=== PATIENT | female | born 1960 | race American Indian/Alaskan Native ===

== ENCOUNTER 2024-07-22 17:03 | Emergency (ER) | payer SELFPAY ==
[2024-07-22] MEDS ORDERED: Sodium Chloride 0.9% 10 ML Syringe FLUSH PRN (17:20)
[2024-07-22 17:59] LABS: BASOPHILS ABSOLUTE AUTO 0.05 10^3/uL (0.00-0.10); BASOPHILS PERCENT AUTO 0.6 % (0.0-1.0); EOSINOPHILS ABSOLUTE AUTO 0.07 10^3/uL (0.10-0.30); EOSINOPHILS PERCENT AUTO 0.9 % (1.0-3.0); HEMATOCRIT 40.2 % (37.0-47.0); HEMOGLOBIN 13.4 g/dL (12.0-16.0); IMMATURE GRAN ABSOLUTE AUTO 0.01 10^3/uL (0.00-0.04); IMMATURE GRAN PERCENT AUTO 0.1 % (0.0-0.4); LYMPHOCYTES ABSOLUTE AUTO 1.79 10^3/uL (1.00-4.00); LYMPHOCYTES PERCENT AUTO 22.7 % (20.0-40.0); MEAN CORPUSCULAR HEMOGLOBIN 30.5 pg (27.0-31.0); MEAN CORPUSCULAR HGB CONC 33.3 g/dL (32.0-36.0); MEAN CORPUSCULAR VOLUME 91.6 fL (82.0-92.0); MEAN PLATELET VOLUME 9.8 fL (7.4-10.4); MONOCYTES ABSOLUTE AUTO 0.52 10^3/uL (0.10-0.80); MONOCYTES PERCENT AUTO 6.6 % (2.0-8.0); NEUTROPHILS ABSOLUTE AUTO 5.44 10^3/uL (2.50-7.00); NEUTROPHILS PERCENT AUTO 69.1 % (50.0-70.0); PLATELET COUNT,PLT 282 10^3/uL (150-400); RED BLOOD CELL COUNT 4.39 10^6/uL (3.80-5.50); RED CELL DISTRIBUTION WIDTH 13.7 % (11.5-14.5); WHITE BLOOD CELL COUNT,WBC 7.88 10^3/uL (5.00-10.00)
[2024-07-22 18:08] LABS: APPEARANCE,URINE CLEAR (CLEAR); BILIRUBIN,URINE NEGATIVE (NEGATIVE); COLOR,URINE YELLOW (YELLOW); GLUCOSE,URINE NEGATIVE (NEGATIVE); KETONES,URINE NEGATIVE (NEGATIVE); LEUKOCYTE ESTERASE,URINE TRACE (NEGATIVE); NITRITE,URINE NEGATIVE (NEGATIVE); OCCULT BLOOD,URINE NEGATIVE (NEGATIVE); PROTEIN,URINE NEGATIVE (NEGATIVE); UROBILINOGEN,URINE 0.2 E.U./dL (0.2-1.0)
[2024-07-22 18:16] LABS: ALANINE AMINOTRANSFERASE,ALT 42 U/L (14-63); ALBUMIN 4.24 g/dL (3.40-5.00); ALKALINE PHOSPHATASE 162 U/L (46-116); ANION GAP 14.8 mmol/L (5-15); ASPARTATE AMNIOTRANSFERASE,AST 29 U/L (15-37); BILIRUBIN TOTAL 0.8 mg/dL (0.2-1.0); BLOOD UREA NITROGEN,BUN 12 mg/dL (7-18); CALCIUM 9.2 mg/dL (8.7-10.3); CARBON DIOXIDE,CO2 29.8 mmol/L (21.0-32.0); CHLORIDE,CL 100 mmol/L (98-107); CREATININE 1.35 mg/dL (0.51-1.17); EST CRCL DRUG DOSING (CG) 35.28 mL/min; GLUCOSE RANDOM 129 mg/dL (70-140); POTASSIUM,K 3.6 mmol/L (3.5-5.1); PROTEIN TOTAL,TP 7.8 g/dL (6.4-8.2); SODIUM,NA 141 mmol/L (136-145)
[2024-07-22 18:17] LABS: C-REACTIVE PROTEIN < 0.50 mg/dL (0.00-0.50); ESTIMATED GFR 44 mL/min (>=60); ETHANOL BLOOD MEDICAL < 3 mg/dL (<3)
[2024-07-22 18:18] LABS: CREATINE KINASE,CK 753 U/L (26-276)
[2024-07-22 18:19] LABS: BACTERIA,URINE RARE /HPF (NONE TO FEW); EPITHELIAL CELLS,URINE FEW /LPF; RBC,URINE 0-5 /HPF (0-5)
[2024-07-22 18:22] LABS: B-TYPE NATRIURETIC PEPTIDE,BNP 6 pg/mL (0-100)
[2024-07-22] MEDS: hydrALAZINE 20 MG/ML SDV IVPUSH ONE ×2 (18:25→18:45)
[2024-07-22] MEDS: Sodium Chloride 0.9% 1,000 ML IV ONE ×2 (18:31→20:49)
[2024-07-22] MEDS: hydrALAZINE 20 MG/ML SDV ONE (18:50)
== END 2024-07-22 19:30 | disposition left against medical advice (07) ==
LOC: KA.ED 17:03
DX: I12.9 Hypertensive chronic kidney disease with stage 1 through stage 4 chronic kidney disease, or unspecified chronic kidney disease (principal); N18.32 Chronic kidney disease, stage 3b; R74.8 Abnormal levels of other serum enzymes; Z88.7 Allergy status to serum and vaccine; E03.9 Hypothyroidism, unspecified; Z79.890 Hormone replacement therapy; Z53.20 Procedure and treatment not carried out because of patient's decision for unspecified reasons
CPT/HCPCS: 71045; 80053; 80307; 81001; 82550; 83880; 84443; 84484; 85025; 85379; 86140; 87086; 93005; 96361; 96374; 99284; J0360; J7030